=== PATIENT | male | born 1945 | race Caucasian/White ===

== ENCOUNTER 2022-08-17 06:30 | Day surgery (SDC) | payer MEDICARE, OTHER ==
[~2022-08-17 06:30] MED LIST: Dextrose 5%-0.45% NaCl 1,000 ML IV SCH
[2022-08-17] MEDS ORDERED: Midazolam 1 MG/ML 2 ML SDV IV ONE ×3 (06:31→07:37)
[2022-08-17] MEDS ORDERED: fentaNYL 100 MCG/2 ML SDV IV ONE ×3 (06:31→07:36)
[2022-08-17] MEDS ORDERED: fentaNYL 100 MCG/2 ML SDV ONE (07:02)
[2022-08-17] MEDS ORDERED: Midazolam 1 MG/ML 2 ML SDV ONE (07:02)
== END 2022-08-17 09:30 | disposition home or self-care (01) ==
LOC: DL.ENDO 06:30
PROVIDERS: ATTEND Internal Medicine Gastroenterology
DX: K29.50 Unspecified chronic gastritis without bleeding (principal); K31.7 Polyp of stomach and duodenum; K25.9 Gastric ulcer, unspecified as acute or chronic, without hemorrhage or perforation; D50.9 Iron deficiency anemia, unspecified; I10 Essential (primary) hypertension; E78.5 Hyperlipidemia, unspecified; K21.9 Gastro-esophageal reflux disease without esophagitis; N40.0 Benign prostatic hyperplasia without lower urinary tract symptoms; F32.A Depression, unspecified; G47.00 Insomnia, unspecified; I34.0 Nonrheumatic mitral (valve) insufficiency; K40.90 Unilateral inguinal hernia, without obstruction or gangrene, not specified as recurrent; F17.220 Nicotine dependence, chewing tobacco, uncomplicated; Z88.0 Allergy status to penicillin; Z79.82 Long term (current) use of aspirin; Z80.0 Family history of malignant neoplasm of digestive organs
CPT/HCPCS: 87077; 88305; J2250; J3010; J7042

== ENCOUNTER 2022-08-24 06:26 | Day surgery (SDC) | payer MEDICARE, OTHER ==
[~2022-08-24 06:26] MED LIST changes: +Sodium Chloride 0.9% 10 ML Syringe FLUSH PRN; +Sodium Chloride 0.9% 10 ML Syringe FLUSH SCH
[2022-08-24] MEDS ORDERED: Midazolam 1 MG/ML 2 ML SDV ONE (07:33)
[2022-08-24] MEDS ORDERED: fentaNYL 100 MCG/2 ML SDV ONE (07:34)
[2022-08-24] MEDS ORDERED: fentaNYL 100 MCG/2 ML SDV IV ONE ×5 (07:39→07:53)
[2022-08-24] MEDS ORDERED: Midazolam 1 MG/ML 2 ML SDV IV ONE ×6 (07:41→07:49)
== END 2022-08-24 09:34 | disposition home or self-care (01) ==
LOC: DL.ENDO 06:26
PROVIDERS: ATTEND Internal Medicine Gastroenterology
DX: D12.2 Benign neoplasm of ascending colon (principal); D50.9 Iron deficiency anemia, unspecified; K57.30 Diverticulosis of large intestine without perforation or abscess without bleeding; I10 Essential (primary) hypertension; E78.5 Hyperlipidemia, unspecified; K21.9 Gastro-esophageal reflux disease without esophagitis; F32.A Depression, unspecified; R73.9 Hyperglycemia, unspecified; E83.52 Hypercalcemia; I34.0 Nonrheumatic mitral (valve) insufficiency; N40.0 Benign prostatic hyperplasia without lower urinary tract symptoms; K40.90 Unilateral inguinal hernia, without obstruction or gangrene, not specified as recurrent; I35.0 Nonrheumatic aortic (valve) stenosis; G47.00 Insomnia, unspecified; H91.90 Unspecified hearing loss, unspecified ear; F17.220 Nicotine dependence, chewing tobacco, uncomplicated; Z88.0 Allergy status to penicillin
CPT/HCPCS: 88305; J2250; J3010; J7042